=== PATIENT | male | born 1965 | race Caucasian/White ===

== ENCOUNTER → 2017-10-12 | Outpatient (REF) ==
--- NOTE | 2017-10-12 11:09 | RADIOLOGY IMAGING REPORT ---
FACILITY: [facility] PATIENT NAME: Tessy العراقي : 1965 MR: [id number] V: [id number] EXAM DATE: ORDERING PHYSICIAN: EFFIE FUCHS TECHNOLOGIST: Location: [facility] Patient: Tessy العراقي : 1965 Visit/Account:[id number] Date of Sevice: 10/12/2017 PA chest, one view. HISTORY: Health exam of defined subpopulation. COMPARISON: None. A 4 mm nodular density consistent with a calcified granuloma projects on the lateral aspect of the ri ght mid lung. The heart and mediastinum are unremarkable. Pulmonary vessels are unremarkable. The lungs are otherwise clear. The pleural surfaces are unremarkable. No pneumothorax. No acute bony abn ormalities. IMPRESSION: Probable old granulomatous disease. Otherwise no evidence of acute cardiopulmonary disease. Report Dictated By: Carlos Greer MD at 10/12/2017 11:02 AM Report E-Signed By: Carlos Greer MD at 10/12/2017 11:03 AM WSN:[email or web address]
== END ==
LOC: RAD 10:15
PROVIDERS: ATTEND Physician Assistant Medical
DX: Z02.89 Encounter for other administrative examinations (principal)
CPT/HCPCS: 71045

== ENCOUNTER → 2017-10-12 | Outpatient (CLI) | payer SELFPAY | LOC: RAD 10:14 | PROVIDERS: ATTEND Physician Assistant Medical | DX: Z02.9 Encounter for administrative examinations, unspecified (principal) ==

== ENCOUNTER → 2018-10-31 | Outpatient (REF) ==
--- NOTE | 2018-10-31 15:26 | RADIOLOGY IMAGING REPORT ---
FACILITY: [facility] PATIENT NAME: Tessy العراقي : 1965 MR: [id number] V: [id number] EXAM DATE: ORDERING PHYSICIAN: CHERELLE SINGH TECHNOLOGIST: Location: [facility] [place] Patient: Tessy العراقي : 1965 Visit/Account:[id number] Date of Sevice: 10/31/2018 CHEST PA LAT History: Employment exam FINDINGS: Comparison studies: Chest x-ray 10/12/2017 Tubes and Lines: None. Lungs and pleura: Small calcified granuloma right lung unchanged. Lung branch was well aerated. Mediastinum: normal. Cardiac silhouette: normal . Osseous structures: Unremarkable for age . IMPRESSION: No acute cardiopulmonary pathology identified. Report Dictated By: Matteo Moeller MD at 10/31/2018 3:21 PM Report E-Signed By: Matteo Moeller MD at 10/31/2018 3:22 PM WSN:[id number]
== END ==
LOC: RAD 10:02
PROVIDERS: ATTEND Family Medicine
DX: Z02.89 Encounter for other administrative examinations (principal)
CPT/HCPCS: 71046

== ENCOUNTER → 2019-01-14 | Outpatient (REF) | payer OTHER | LOC: ZZSENDIN 16:37 | PROVIDERS: ATTEND Family Medicine | DX: R00.0 Tachycardia, unspecified (principal); R06.02 Shortness of breath | CPT/HCPCS: 85379 ==

== ENCOUNTER → 2019-01-14 | Outpatient (CLI) | payer OTHER ==
--- NOTE | 2019-01-14 17:13 | RADIOLOGY IMAGING REPORT ---
[facility] PATIENT NAME: Tessy العراقي : 1965 MR: [id number] V: [id number] EXAM DATE: ORDERING PHYSICIAN: CHERELLE SINGH TECHNOLOGIST: Location: [facility] Patient: Tessy العراقي : 1965 Visit/Account:[id number] Date of Sevice: 01/14/2019 Chest 2 views: HISTORY: Shortness of breath, congestion x2 weeks. COMPARISON: 10/31/2018 FINDINGS: Frontal and lateral chest: There is prominence of the perihilar and interstitial markings m ore pronounced compared to previous, findings may be indicative of bronchitis, viral pneumonitis or e xacerbation of reactive airways disease. There is no focal consolidation or pleural effusion. No pneu mothorax. Cardiomediastinal silhouette is within normal limits. Calcified granuloma present in the right upper lobe. IMPRESSION: Findings suggesting bronchitis, viral pneumonitis or exacerbation of reactive airways dis ease, clinically correlate. There is no radiographic evidence of a focal pneumonia. Report Dictated By: Luz Dumont MD at 01/14/2019 5:06 PM Report E-Signed By: Luz Dumont MD at 01/14/2019 5:08 PM WSN:[id number]
== END ==
LOC: RAD 16:32
PROVIDERS: ATTEND Family Medicine
DX: R00.0 Tachycardia, unspecified (principal); R06.02 Shortness of breath
CPT/HCPCS: 71046

== ENCOUNTER → 2019-01-15 | Outpatient (CLI) | payer OTHER ==
[~2019-01-15] MED LIST: IOPAMIDOL 76% 100 ML INFUS BTL 0 ML ONE; IOPAMIDOL 76% 100 ML INFUS BTL 100 ML ONE; NS(*) 0.9% 50 ML BAG 50 ML ONE
--- NOTE | 2019-01-15 10:53 | RADIOLOGY IMAGING REPORT ---
FACILITY: [facility] [place] PATIENT NAME: Tessy العراقي : 1965 MR: [id number] V: [id number] EXAM DATE: ORDERING PHYSICIAN: CHERELLE SINGH TECHNOLOGIST: Location: [facility] Patient: Tessy العراقي : 1965 Visit/Account:[id number] Date of Sevice: 01/15/2019 CT CTA CHEST W & W/O CON HISTORY: Dyspnea and shortness of breath x1 month ADDITIONAL HISTORY: None. TECHNIQUE: CTA chest with intravenous contrast. Axial imaging acquired following administration of IV contrast timed for maximum opacification of the pulmonary arterial vasculature. Slab 3-D MIP zackary nstructed images were also created for further evaluation and interpretation. Reconstruction of [place] [facility] [place] includes multiplanar 2-D in the sagittal and coronal planes and 3-D reconstructed michelle nal slab MIP series. 3-D images were created by the technologist.Dose Lowering Technique One of the following dose optimization techniques was utilized in the performance of this exam: Autom ated exposure control; adjustment of the mA and/or kV according to the patient's size; or use of an i terative reconstruction technique. Specific details can be referenced in the facility's radiology C T exam operational policy. CONTRAST: 75 mL Isovue-370 COMPARISON: None. FINDINGS: Lungs/pleura: The lung bases are incompletely imaged. There is a 6 mm calcified nodule lateral aspect of the right upper lobe. Period there is a small pos terior layering right pleural effusion Heart/vessels: The contrast bolus to the peripheral subsegmental arterial branches is somewhat limit ed. There is no evidence of central pulmonary emboli.. There are at least moderate coronary artery calcifications Mediastinum/lymph nodes: There is prominent mediastinal and bilateral hilar adenopathy. A reference d pretracheal lymph node measures 1.9 x 1.6 cm. Prevascular space lymph node measures 1.9 x 1.1 cm a left hilar lymph node measures 2.1 x 1.9 cm a right hilar lymph node measures 2.3 x 1.9 cm and is pa rtially calcified and inferior right hilar lymph node measures 2.8 x 1.7 cm subcarinal lymph node damián sures 2.7 x 1.7 cm Visualized upper abdomen: Calcified granulomas in the spleen Bones/soft tissues: Negative. Additional findings: None IMPRESSION: There is a very prominent bilateral hilar and mediastinal adenopathy. One of the right hilar lymph n odes as partially calcified and there is a 6 mm calcified nodule in the right upper lobe. This could be the reflection of a granulomatous process such as sarcoidosis. The differential diagnosis for th e adenopathy also loops infectious/inflammatory process or malignant process there for follow-up zackary mmended Coronary artery calcifications The peripheral subsegmental arterial branches are not ideally opacified with contrast however there i s no evidence of central pulmonary emboli Results were called to CHERELLE SINGH at 01/15/2019 10:42 AM. Report Dictated By: Beronica Dhaliwal MD at 01/15/2019 10:23 AM Report E-Signed By: Beronica Dhaliwal MD at 01/15/2019 10:48 AM WSN:[id number]
== END ==
LOC: CT 08:50
PROVIDERS: ATTEND Family Medicine
DX: I25.10 Atherosclerotic heart disease of native coronary artery without angina pectoris (principal); R59.0 Localized enlarged lymph nodes
CPT/HCPCS: 71275; J7050; Q9967

== ENCOUNTER 2019-01-17 15:01 | Emergency (ER) | payer OTHER ==
[2019-01-17] MEDS ORDERED: METH4TAB67 PO (15:35)
[2019-01-17] MEDS ORDERED: DOXY20PT PO (15:35)
[2019-01-17] MEDS ORDERED: LAN30PT PO (15:35)
[2019-01-17] MEDS ORDERED: METOPROLOL TART 5 MG/5 ML VIAL IVP ONE (15:40)
[2019-01-17] MEDS ORDERED: ASPIRIN 81 MG CHEW PO ONE (15:40)
--- NOTE | 2019-01-17 15:48 | ER Report ---
History and Physical Time Seen By MD: 15:39 Hx. of Stated Complaint: sent by cardio, low cardiac function, rapid breathing HPI/ROS CHIEF COMPLAINT: sob HISTORY OF PRESENT ILLNESS: PT states for the last month he has been feel sob. States that he gets very tired and sob with little exertion.PT statse he did have an occasional cough when lying flat. PT went to pcp on 01/14 and had cxr which showed possible viral pneumonitis/bronchitis and pt was placed on Doxy and prednisone. Pt states the cough improved but still sob and noticed his blood pressure and heart rate are elevated. Pt was sent for CTA for PE and was found to have bilateral hilar lymphadenopathy and was told could be infectious or sarcoid. Pt has an appt with Pulmonary Monday in [place]. Pt was sent for an out pt echo today and was sent from echo to ed due to a low EF. Pt denies any hx of cardiac ds for himself or parents. Pt states he had htn and was on lisinipril but was stopped due to bp has been under control 120/80. Now blood pressure is back up. PT does state he had cp on Monday that was at rest and exertion that was pressure like but that seemed to resolve with the steriods. REVIEW OF SYSTEMS: Constitutional: No fever, no chills. Eyes: No discharge. ENT: No sore throat. Cardiovascular: + chest pain, + palpitations. Respiratory: + cough, + shortness of breath. Gastrointestinal: No abdominal pain, no vomiting. Genitourinary: No hematuria. Musculoskeletal: No back pain. Skin: No rashes. Neurological: No headache. Allergies: Coded Allergies: No Known Drug Allergies (Unverified , 01/17/19) Home Meds Reported Medications Lansoprazole (PREVACID) 30 Mg Capsule.dr, 30 MG PO QDAY, CAP 01/17/19 Methylprednisolone (METHYLPREDNISOLONE) 4 Mg Tablet, 4 MG PO QDAY, TAB 01/17/19 Doxycycline Hyclate (DOXYCYCLINE HYCLATE) 20 Mg Tablet, 20 MG PO BID 01/17/19 Past Medical/Surgical History Pmhx: htn, SAH in 2013 secondary to aneurysm Pshx: eye surgery and aneurysm surgery Reviewed Nurses Notes: Yes Old Medical Records Reviewed: Yes Hx Alcohol Use: Yes (occasionally) Constitutional Vital Sign - Last 24 Hours 01/17/19 01/17/19 01/17/19/27/19 15:05 15:10 15:20 15:30 Temp 97.6 Pulse 111 109 107 102 Resp 32 22 14 9 B/P (MAP) 154/125 130/112 (118) Pulse Ox 87 95 95 96 O2 Delivery Room Air 01/17/19 01/17/19 01/17/19 01/17/19 15:32 15:40 15:50 15:51 Pulse 105 106 Resp 14 14 B/P (MAP) 132/113 (119) Pulse Ox 95 96 O2 Flow Rate 2.0 01/17/19 01/17/19 01/17/19 01/17/19 16:00 16:10 16:15 16:20 Pulse 88 87 89 Resp 12 11 23 B/P (MAP) 128/101 (110) 118/104 (109) Pulse Ox 94 94 97 01/17/19 16:30 Pulse 94 Resp 9 B/P (MAP) 82/67 (72) Pulse Ox 96 Physical Exam General Appearance: The patient is alert, has no immediate need for airway protection and no signs of toxicity. Eyes: Pupils equal and round no pallor or injection, EOMI ENT: no pharyngeal erythema or exudates, Mucous membranes are moist, TM are nl b/l Respiratory: There are no retractions, lungs are clear to auscultation. Cardiovascular: Regular rate and rhythm. pulses are equal and symmetrical Gastrointestinal: Abdomen is soft and non tender, no masses, bowel sounds normal, no guarding, no rigidity or rebound Neurological: Cranial nerves II-XII grossly intact, no sensory or motor loss Skin: Warm and dry, no rashes. Musculoskeletal: Neck is supple non tender, no vertebral tenderness Extremities are nontender, nonswollen and have full range of motion. DIFFERENTIAL DIAGNOSIS: After history and physical exam differential diagnosis was considered for acs, thyroid ds, sarcoidosis, anemia Medical Decision Making Data Points Result Diagram: 01/17/19 1540 01/17/19 1540 Laboratory Hematology Test 01/17/19 15:40 Red Blood Count 5.39 M/uL (4.00-5.60) Mean Corpuscular Volume 90.9 fL (80.0-96.0) Mean Corpuscular Hemoglobin 30.8 pg (26.0-33.0) Mean Corpuscular Hemoglobin Concent 33.9 g/dL (32.0-36.0) Red Cell Distribution Width 14.1 % (11.5-14.5) Mean Platelet Volume 8.6 fL (7.2-11.1) Neutrophils (%) (Auto) 70.4 % (39.4-72.5) Lymphocytes (%) (Auto) 21.1 % (17.6-49.6) Monocytes (%) (Auto) 7.6 % (4.1-12.4) Eosinophils (%) (Auto) 0.4 % (0.4-6.7) Basophils (%) (Auto) 0.5 % (0.3-1.4) Nucleated RBC Relative Count (auto) 0.1 /100WBC Neutrophils # (Auto) 6.8 K/uL (2.0-7.4) Lymphocytes # (Auto) 2.1 K/uL (1.3-3.6) Monocytes # (Auto) 0.7 K/uL (0.3-1.0) Eosinophils # (Auto) 0.0 K/uL (0.0-0.5) Basophils # (Auto) 0.1 K/uL (0.0-0.1) Nucleated RBC Absolute Count (auto) 0.01 K/uL Prothrombin Time 13.9 seconds (12.0-14.4) Prothromb Time International Ratio 1.07 Activated Partial Thromboplast Time 26 seconds (23-35) Sodium Level 138 mmol/L (137-145) Potassium Level 4.3 mmol/L (3.5-5.0) Chloride Level 109 mmol/L (98-107) Carbon Dioxide Level 19 mmol/L (22-30) Blood Urea Nitrogen 17 mg/dl (9-21) Creatinine 1.10 mg/dl (0.66-1.25) Glomerular Filtration Rate Calc > 60.0 Random Glucose 121 mg/dl (75-110) Calcium Level 8.9 mg/dl (8.4-10.2) Total Bilirubin 1.1 mg/dl (0.2-1.3) Aspartate Amino Transf (AST/SGOT) 126 U/L (0-35) Alanine Aminotransferase (ALT/SGPT) 245 U/L (0-56) Alkaline Phosphatase 84 U/L (0-126) Troponin I 0.275 ng/ml B-Type Natriuretic Peptide 702 pg/ml (0-100) Total Protein 6.9 g/dl (6.3-8.2) Albumin 4.2 g/dl (3.5-5.0) Chemistry Test 01/17/19 15:40 White Blood Count 9.7 k/uL (4.5-11.0) Red Blood Count 5.39 M/uL (4.00-5.60) Hemoglobin 16.6 g/dL (14.0-18.0) Hematocrit 49.0 % (42.0-52.0) Mean Corpuscular Volume 90.9 fL (80.0-96.0) Mean Corpuscular Hemoglobin 30.8 pg (26.0-33.0) Mean Corpuscular Hemoglobin Concent 33.9 g/dL (32.0-36.0) Red Cell Distribution Width 14.1 % (11.5-14.5) Platelet Count 252 K/uL (150-450) Mean Platelet Volume 8.6 fL (7.2-11.1) Neutrophils (%) (Auto) 70.4 % (39.4-72.5) Lymphocytes (%) (Auto) 21.1 % (17.6-49.6) Monocytes (%) (Auto) 7.6 % (4.1-12.4) Eosinophils (%) (Auto) 0.4 % (0.4-6.7) Basophils (%) (Auto) 0.5 % (0.3-1.4) Nucleated RBC Relative Count (auto) 0.1 /100WBC Neutrophils # (Auto) 6.8 K/uL (2.0-7.4) Lymphocytes # (Auto) 2.1 K/uL (1.3-3.6) Monocytes # (Auto) 0.7 K/uL (0.3-1.0) Eosinophils # (Auto) 0.0 K/uL (0.0-0.5) Basophils # (Auto) 0.1 K/uL (0.0-0.1) Nucleated RBC Absolute Count (auto) 0.01 K/uL Prothrombin Time 13.9 seconds (12.0-14.4) Prothromb Time International Ratio 1.07 Activated Partial Thromboplast Time 26 seconds (23-35) Glomerular Filtration Rate Calc > 60.0 Calcium Level 8.9 mg/dl (8.4-10.2) Total Bilirubin 1.1 mg/dl (0.2-1.3) Aspartate Amino Transf (AST/SGOT) 126 U/L (0-35) Alanine Aminotransferase (ALT/SGPT) 245 U/L (0-56) Alkaline Phosphatase 84 U/L (0-126) Troponin I 0.275 ng/ml B-Type Natriuretic Peptide 702 pg/ml (0-100) Total Protein 6.9 g/dl (6.3-8.2) Albumin 4.2 g/dl (3.5-5.0) Coagulation Test 01/17/19 15:40 Prothrombin Time 13.9 seconds Prothromb Time International Ratio 1.07 Activated Partial Thromboplast Time 26 seconds EKG/Imaging EKG Interpretation sinus tachy at [address] wave changes Imaging Had cta chest and cxr this week so will hold off. ED Course/Re-evaluation Clinical Indication for ER IV: IV Access ED Course Check labs, ekg, called over to echo department to have his echo today officially read. 01/17/2019 4:26:50 pm Pts troponin is positive. Pts echo has been officially read by [facility] and was found to have LVEF 30-35% [facility] L ventricular systolic function severely reduced and global hypokinesis, R V dialated. Spoke wt pt and his and would like to try [facility] first and if unable the [facility] 01/17/2019 4:54:53 pm Transfer center called again at [place] and they are waiting for [employer] 01/17/2019 5:03:01 pm Will draw second troponin to determine direction for possible timing of nonstemi 01/17/2019 5:31:[address] Mills, Hospitalist, accepts pt to [facility]. Plan is to Cath person tomorrow. Dr. 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 Decision to Disposition Date: Jan 17, 2019 Decision to Disposition Time: 17:32 Depart Departure Latest Vital Signs Vital Signs Date Time Temp Pulse Resp B/P (MAP) Pulse Ox O2 Delivery O2 Flow Rate FiO2 01/17/19 16:30 94 9 82/67 (72) 96 01/17/19 15:32 2.0 01/17/19 15:05 97.6 Room Air Impression: Primary Impression: Non-STEMI (non-ST elevated myocardial infarction) Additional Impressions: Hypertension Congestive heart failure (CHF) Condition: Condition Unchanged Disposition: XFER TO [facility] Problem Qualifiers Additional Impressions: Hypertension Hypertension type: essential hypertension Qualified Codes: I10 - Essential (primary) hypertension Congestive heart failure (CHF) Heart failure type: unspecified Heart failure chronicity: acute Qualified Codes: I50.9 - Heart failure, unspecified JOVANY LOVELACE DO Jan 17, 2019 15:48
[2019-01-17 15:50] LABS: PLATELET COUNT, AUTOMATED 252 K/uL (150-450)
[2019-01-17 15:53] LABS: INR 1.07
--- NOTE | 2019-01-17 15:54 | EKG ---
FACILITY: [facility] PATIENT NAME: FANG LOGAN : [id number] MR: [id number] V: [id number] EXAM DATE: ORDERING PHYSICIAN: JOVANY LOVELACE TECHNOLOGIST: EREN Test Reason : Blood Pressure : / mmHG Vent. Rate : 110 BPM Atrial Rate : 110 BPM P-R Int : 140 ms QRS Dur : 082 ms QT Int : 366 ms P-R-T Axes : 058 -06 007 degrees QTc Int : 495 ms Sinus tachycardia Probable biatrial enlargement Borderline left axis Poor R wave progression anteriorly No previous ECGs available Confirmed by KENZIE ZAVALA ([id number] on 01/17/2019 8:09:22 PM Referred By: Confirmed By:KENZIE ZAVALA
[2019-01-17] MEDS ORDERED: FUROSEMIDE 40 MG/4 ML VIAL IVP ONE (17:25)
[2019-01-17 17:45] VITALS: BP 140/105
== END 2019-01-17 18:30 | disposition short-term general hospital (02) ==
LOC: ER 15:35
DX: I21.4 Non-ST elevation (NSTEMI) myocardial infarction (principal); I10 Essential (primary) hypertension; I11.0 Hypertensive heart disease with heart failure; I50.9 Heart failure, unspecified
CPT/HCPCS: 36415; 82553; 83880; 84443; 84484; 85025; 85610; 85730; 93005; 96374; 96375; 99285; J1940; 82040; 82247; 82310; 82374; 82435; 82565; 82947; 84075; 84132; 84155; 84295; 84450; 84460; 84520

== ENCOUNTER → 2019-01-17 | Outpatient (CLI) | payer OTHER ==
[~2019-01-17] MED LIST changes: +DOXY20PT PO; -IOPAMIDOL 76% 100 ML INFUS BTL 0 ML ONE; -IOPAMIDOL 76% 100 ML INFUS BTL 100 ML ONE; +LAN30PT PO; +METH4TAB67 PO; -NS(*) 0.9% 50 ML BAG 50 ML ONE
== END ==
LOC: US 00:24
PROVIDERS: ATTEND Family Medicine
DX: I51.7 Cardiomegaly (principal); I34.0 Nonrheumatic mitral (valve) insufficiency
CPT/HCPCS: 93306

== ENCOUNTER → 2019-01-17 | Outpatient (CLI) | payer OTHER | LOC: AMB 18:20 | PROVIDERS: ATTEND Nurse Practitioner | DX: R79.89 Other specified abnormal findings of blood chemistry (principal) | CPT/HCPCS: A0425; A0426 ==